=== PATIENT | female | born 1965 | race Caucasian/White ===

== ENCOUNTER 2020-02-10 12:14 | Outpatient (CLI) | payer BC, SELFPAY ==
[2020-02-10 14:27] LABS: SARS-CoV-2 Ag Negative (Negative)
[2020-02-11 14:04] LABS: SARS-CoV-2 RNA PCR Negative
== END 2020-02-10 12:15 | disposition home or self-care (01) ==
PROVIDERS: PCP Family Medicine; Visit Provider Family Medicine
DX: Z20.828 Contact with and (suspected) exposure to other viral communicable diseases (principal)
CPT/HCPCS: 87426; 87635; C9803; U0003